=== PATIENT | female | born 1955 | race Caucasian/White ===

== ENCOUNTER → 2018-03-04 | Outpatient (CLI) | payer BC ==
[~2018-03-04] MED LIST: ASPI325T6 PO; ASPIRIN 32325 MG/TA1 PO; ASPIRIN 81M81 MG/TA2 PO; BYSTOLIC5 MG PO; CELEBREX 200MG200 MG PO; CIPRO 500MG TA500 MG PO; FOLIC ACID0.4 MG PO; GLUCOSAMINE & C1 TA1 PO; IRON325 M1 PO; MIRAPEX0.25 MG PO; MOBIC15 MG PO; NORCO 325 MG-7.1 TAB PO; SYNTHROID0.1 MG/TAB PO; TOPROL XL 50MG50 MG PO; ULTRAM 50MG TAB50 MG PO; Ultram PO; VITAMIN C500 MG PO
== END ==
LOC: COL.RAD 10:17
DX: M71.38 Other bursal cyst, other site (principal); M48.061 Spinal stenosis, lumbar region without neurogenic claudication; M43.16 Spondylolisthesis, lumbar region

== ENCOUNTER → 2018-03-11 | Outpatient (CLI) | payer BC | LOC: COL.RAD 12:13 | DX: M71.38 Other bursal cyst, other site (principal); M48.061 Spinal stenosis, lumbar region without neurogenic claudication; Z98.890 Other specified postprocedural states | CPT/HCPCS: A9585 ==